=== PATIENT | female | born 1970 | race Caucasian/White ===

== ENCOUNTER 2017-10-08 09:22 | Inpatient (IN) | payer OTHER ==
[~2017-10-08] VITALS: Ht 157.5 cm; Wt 96.7 kg
[2017-10-08] VITALS (61 sets, daily range): BP systolic 77–204; BP diastolic 40–111; PULSE 70–109; TEMP 97.8–98.6
[~2017-10-08 09:22] MED LIST: BUTALBITAL/APAP1 TA1 PO; CALCIUM CARBON500 M1 PO; PRENATAL VITAMI1 TA5 PO; VITAMIN C1 TAB PO
[2017-10-08] MEDS ORDERED: TRANDATE 100MG100 MG PO (09:33)
[2017-10-08] MEDS ORDERED: NORMODYNE200 MG PO (09:33)
[2017-10-08 09:56] LABS: MEAN CELL VOLUME 81 fl (80.0-100.0); MEAN CORPUSCULAR HGB CONC 34 g/dl (33.0-37.0); MEAN PLATELET VOLUME 11.2 fl (7.4-10.4); PLATELET COUNT 190 K/mm3 (130-400); RED BLOOD COUNT 3.82 M/mm3 (4.10-5.30); REDCELL DISTRIBUTION WIDTH-CV 14.5 % (11.5-14.5)
[2017-10-08 10:00] LABS: HEMOGLOBIN 10.4 g/dl (12.5-16.0); MEAN CORPUSCULAR HEMOGLOBIN 27 pg (27.0-31.0)
[2017-10-08 10:09] LABS: ALBUMIN 3.3 gm/dL (3.5-5.0); BILIRUBIN,TOTAL 0.3 mg/dL (0.0-1.0); CALCIUM 8.8 mg/dL (8.4-10.2); CREATININE, serum 0.57 mg/dL (0.52-1.25); POTASSIUM 4.1 mmol/L (3.4-5.0); TOTAL PROTEIN 6.3 gm/dL (6.4-8.2)
[2017-10-08 10:39] LABS: COLLECTION METHOD CLEAN CATCH
[2017-10-08 10:48] LABS: MUCOUS Present /lpf; PH 7 (5-8); SQUAMOUS EPITHELIAL 0-2 /hpf; URINE APPEARANCE Clear; URINE BACTERIA None Seen /hpf; URINE BILIRUBIN Negative (NEGATIVE); URINE BLOOD Negative (NEGATIVE); URINE COLOR Yellow; URINE GLUCOSE Negative (NEGATIVE); URINE KETONE Negative (NEGATIVE); URINE LEUKOCYTE ESTERASE Negative (NEGATIVE); URINE NITRATE Negative (NEGATIVE); URINE PROTEIN(semi-quant) Negative (NEGATIVE); URINE RBC None Seen /hpf; URINE UROBILINOGEN Negative (NEGATIVE); URINE WBC 0-2 /hpf
[2017-10-08 11:45] LABS: BASO % 0.2 % (0.0-2.0); EOS # 0.1 (0.0-0.7); GRAN # 7.2 (1.4-6.5); GRAN % 76.1 % (42.2-75.2); LYMPH # 1.5 (1.2-3.4); LYMPH % 15.5 % (20.0-51.0); MEAN CELL VOLUME 81 fl (80.0-100.0); MEAN CORPUSCULAR HGB CONC 34 g/dl (33.0-37.0); MEAN PLATELET VOLUME 11.9 fl (7.4-10.4); MONO # 0.6 (0.1-0.6); MONO % 5.8 % (1.7-9.3); PLATELET COUNT 211 K/mm3 (130-400); RED BLOOD COUNT 4.14 M/mm3 (4.10-5.30); REDCELL DISTRIBUTION WIDTH-CV 14.5 % (11.5-14.5)
[2017-10-08 11:47] LABS: HEMATOCRIT 33.7 % (37.0-47.0); HEMOGLOBIN 11.3 g/dl (12.5-16.0); MEAN CORPUSCULAR HEMOGLOBIN 27 pg (27.0-31.0)
[2017-10-08 18:11] LABS: ALBUMIN 3.3 gm/dL (3.5-5.0); BILIRUBIN,TOTAL 0.4 mg/dL (0.0-1.0); CALCIUM 8.2 mg/dL (8.4-10.2); CREATININE, serum 0.6 mg/dL (0.52-1.25); MAGNESIUM 3.9 mg/dL (1.6-2.3); POTASSIUM 3.9 mmol/L (3.4-5.0); TOTAL PROTEIN 6.3 gm/dL (6.4-8.2)
[2017-10-09] VITALS (22 sets, daily range): BP systolic 119–173; BP diastolic 59–140; PULSE 76–116; TEMP 97.4–99
[2017-10-09 08:08] LABS: ALBUMIN 2.8 gm/dL (3.5-5.0); BILIRUBIN,TOTAL 0.3 mg/dL (0.0-1.0); CALCIUM 7.9 mg/dL (8.4-10.2); CREATININE, serum 0.87 mg/dL (0.52-1.25); POTASSIUM 4.3 mmol/L (3.4-5.0); TOTAL PROTEIN 5.5 gm/dL (6.4-8.2)
[2017-10-09 09:03] LABS: MEAN CELL VOLUME 82 fl (80.0-100.0); MEAN CORPUSCULAR HGB CONC 33 g/dl (33.0-37.0); MEAN PLATELET VOLUME 10.9 fl (7.4-10.4); PLATELET COUNT 181 K/mm3 (130-400); RED BLOOD COUNT 3.29 M/mm3 (4.10-5.30); REDCELL DISTRIBUTION WIDTH-CV 14.6 % (11.5-14.5)
[2017-10-09 09:04] LABS: MEAN CORPUSCULAR HEMOGLOBIN 27 pg (27.0-31.0)
[2017-10-10] VITALS (7 sets, daily range): BP systolic 133–156; BP diastolic 74–86; PULSE 78–96; TEMP 98–98.2
[2017-10-10 07:48] LABS: BASO % 0.3 % (0.0-2.0); EOS # 0.2 (0.0-0.7); EOS % 1.3 % (0-4.0); GRAN # 9.5 (1.4-6.5); GRAN % 79.3 % (42.2-75.2); LYMPH # 1.6 (1.2-3.4); LYMPH % 12.9 % (20.0-51.0); MEAN CELL VOLUME 84 fl (80.0-100.0); MEAN CORPUSCULAR HGB CONC 33 g/dl (33.0-37.0); MEAN PLATELET VOLUME 11.2 fl (7.4-10.4); MONO # 0.7 (0.1-0.6); MONO % 5.7 % (1.7-9.3); PLATELET COUNT 169 K/mm3 (130-400); RED BLOOD COUNT 2.92 M/mm3 (4.10-5.30); REDCELL DISTRIBUTION WIDTH-CV 15.1 % (11.5-14.5)
[2017-10-10 07:55] LABS: HEMATOCRIT 24.4 % (37.0-47.0); MEAN CORPUSCULAR HEMOGLOBIN 27 pg (27.0-31.0)
[2017-10-11] VITALS (7 sets, daily range): BP systolic 142–177; BP diastolic 72–91; PULSE 82–103; TEMP 98.4–99
[2017-10-11] MEDS ORDERED: FERROUS SU325 MG/TAB PO (12:19)
[2017-10-11] MEDS ORDERED: IBU800 M1 PO (12:22)
[2017-10-11] MEDS ORDERED: NORMODYNE300 MG PO (12:22)
[2017-10-11] MEDS ORDERED: PERCOCET 325 MG1 TA2 PO (12:23)
[2017-10-12] VITALS (9 sets, daily range): BP systolic 131–162; BP diastolic 66–88; PULSE 83–101; TEMP 98–98.1
[2017-10-12] MEDS ORDERED: PROCARDIA XL 3030 MG PO (10:29)
[2017-10-12 10:50] LABS: HEMOGLOBIN 8.8 g/dl (12.5-16.0); MEAN CELL VOLUME 85 fl (80.0-100.0); MEAN CORPUSCULAR HEMOGLOBIN 28 pg (27.0-31.0); MEAN CORPUSCULAR HGB CONC 33 g/dl (33.0-37.0); PLATELET COUNT 193 K/mm3 (130-400); RED BLOOD COUNT 3.19 M/mm3 (4.10-5.30); REDCELL DISTRIBUTION WIDTH-CV 14.8 % (11.5-14.5)
[2017-10-12 10:54] LABS: COLLECTION METHOD CLEAN CATCH
[2017-10-12 11:01] LABS: MUCOUS Present /lpf; PH 7 (5-8); SQUAMOUS EPITHELIAL 0-2 /hpf; URINE APPEARANCE Clear; URINE BACTERIA None Seen /hpf; URINE BILIRUBIN Negative (NEGATIVE); URINE BLOOD 3+ (NEGATIVE); URINE COLOR Yellow; URINE GLUCOSE Negative (NEGATIVE); URINE KETONE Negative (NEGATIVE); URINE LEUKOCYTE ESTERASE Trace (NEGATIVE); URINE NITRATE Negative (NEGATIVE); URINE PROTEIN(semi-quant) Negative (NEGATIVE); URINE RBC 20-50 /hpf; URINE UROBILINOGEN Negative (NEGATIVE)
[2017-10-12 11:10] LABS: ALBUMIN 3.4 gm/dL (3.5-5.0); BILIRUBIN,TOTAL 0.3 mg/dL (0.0-1.0); CALCIUM 9.4 mg/dL (8.4-10.2); CREATININE, serum 0.72 mg/dL (0.52-1.25); POTASSIUM 4.2 mmol/L (3.4-5.0); TOTAL PROTEIN 6.4 gm/dL (6.4-8.2)
[2017-10-12 18:15] LABS: ALBUMIN 3.3 gm/dL (3.5-5.0); BILIRUBIN,TOTAL 0.2 mg/dL (0.0-1.0); CALCIUM 9.3 mg/dL (8.4-10.2); CREATININE, serum 0.65 mg/dL (0.52-1.25); POTASSIUM 3.8 mmol/L (3.4-5.0); TOTAL PROTEIN 6.2 gm/dL (6.4-8.2)
[2017-10-13 02:15] VITALS: BP 146/76; PULSE 87; TEMP 97.8
[2017-10-13 06:45] VITALS: BP 148/82; PULSE 84; TEMP 98.4
[2017-10-13 07:07] LABS: BILIRUBIN,TOTAL 0.2 mg/dL (0.0-1.0); CREATININE, serum 0.69 mg/dL (0.52-1.25); POTASSIUM 3.8 mmol/L (3.4-5.0); TOTAL PROTEIN 5.7 gm/dL (6.4-8.2)
[2017-10-13] MEDS ORDERED: TRANDATE 200MG200 MG PO (10:28)
== END 2017-10-13 11:00 | disposition home or self-care (01) | DRG 774 ==
LOC: LDRO → LDR 11:12 → OB 11:12 → LDRO 10-21 16:17
PROVIDERS: Obstetrics & Gynecology; Student in an Organized Health Care Education/Training Program
PROC: 10E0XZZ Delivery of Products of Conception, External Approach (ICD-10-PCS; principal; 2017-10-09)
PROC: 3E033VJ Introduction of Other Hormone into Peripheral Vein, Percutaneous Approach (ICD-10-PCS; 2017-10-09)
PROC: 0HQ9XZZ Repair Perineum Skin, External Approach (ICD-10-PCS; 2017-10-09)
DX: O11.4 Pre-existing hypertension with pre-eclampsia, complicating childbirth (principal); O10.92 Unspecified pre-existing hypertension complicating childbirth; O99.02 Anemia complicating childbirth; D64.9 Anemia, unspecified; O70.0 First degree perineal laceration during delivery; Z3A.38 38 weeks gestation of pregnancy; Z37.0 Single live birth
CPT/HCPCS: J0360; J0595; J1200; J2270; J2405; J2550; J2590; J2795; J3475; J7120